=== PATIENT | female | born 1965 | race Hispanic/Latino ===

== ENCOUNTER 2023-12-26 13:39 | Outpatient (CLI) | payer MEDICARE, OTHER | END 2023-12-26 13:40 | disposition home or self-care (01) | LOC: CSHMAMMO 13:39 | PROVIDERS: ATTEND Internal Medicine | DX: R92.8 Other abnormal and inconclusive findings on diagnostic imaging of breast (principal); J81.1 Chronic pulmonary edema; N63.10 Unspecified lump in the right breast, unspecified quadrant; Z78.0 Asymptomatic menopausal state; Z87.891 Personal history of nicotine dependence | CPT/HCPCS: 71271; 76642; 77066; 77080; G0279 ==

== ENCOUNTER 2024-04-26 09:16 | Outpatient (CLI) | payer MEDICARE, OTHER | END 2024-04-26 09:17 | disposition home or self-care (01) | LOC: CSHMAMMO 09:16 | PROVIDERS: ATTEND Internal Medicine | DX: N63.11 Unspecified lump in the right breast, upper outer quadrant (principal) | CPT/HCPCS: 76642; 77066; G0279 ==

== ENCOUNTER 2024-11-07 09:23 | Outpatient (CLI) | payer MEDICARE, OTHER | END 2024-11-07 09:24 | disposition home or self-care (01) | LOC: CSHMAMMO 09:23 | PROVIDERS: ATTEND Internal Medicine | DX: R92.8 Other abnormal and inconclusive findings on diagnostic imaging of breast (principal) | CPT/HCPCS: 77065; G0279 ==

== ENCOUNTER 2025-01-03 13:35 | Outpatient (CLI) | payer MEDICARE, OTHER | END 2025-01-03 13:36 | disposition home or self-care (01) | LOC: CSHMRI 13:35 | PROVIDERS: ATTEND Orthopaedic Surgery | DX: M54.12 Radiculopathy, cervical region (principal); M48.02 Spinal stenosis, cervical region | CPT/HCPCS: 72141 ==